=== PATIENT | female | born 1985 | race Caucasian/White ===

== ENCOUNTER 2025-11-12 08:27 | Outpatient (AMB) | payer MEDICAID, SELFPAY ==
--- NOTE | 2025-11-12 08:35 | A.OFFVIS_ITS ---
Intake Visit Reasons: Toenail Fungus Intake Note: Estevan is a 40 year old female who presents today as a new patient for a evaluation of her left great toe fungus. She states that her nail is very thick, yellow and it is flaking off. Patient mentions that about more than 6 months she dropped something on her toe and it hasnt gotten better ever since. Patient has tried applying nail medication lacquer with no changes. HPI HPI Toenail Fungus: Details: Chief Complaint: The patient presents with concerns about her left big toenail, which started bleeding about a week ago. HPI: The patient is a 40 year old female presenting with concerns about her left great toenail. Onychomycosis of the left hallux: The patient's left great toenail issue began approximately 6-12 months ago, following a suspected trauma from dropping an object on it. The nail initially appeared bruised, then became yellow and thickened. She was prescribed and has been using ciclopirox 8% lacquer for the past two to three months. Initially, treatment with the lacquer showed improvement, with a visible line of healthier nail growing out. However, about one week ago, after cleaning the nail with rubbing alcohol as part of the lacquer regimen, the nail began to bleed, appeared to lift, and has not grown in a couple of weeks. Since the bleeding started, she has applied a bandage and an ointment for cuts. The patient reports a compromised immune system and multiple medical conditions, including a history of mold poisoning, copper toxicity, anaplasmosis, and small fiber neuropathy. She has a history of adverse reactions to medications, stating she can go into toxic shock, and therefore wishes to avoid oral medications. 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 - Often goes barefoot. [facility] Social History (Updated 11/12/25 @ 08:41 by Jose Bowie) Alcohol intake: never Patient Tobacco Use Status: Never used Tobacco Current occupational status: disabled Current occupation: right hand dominant Review of Systems Const All systems reviewed & are unremarkable except as noted in HPI and below Physical Exam Extrem Other: *Bilateral Lower Extremity Focused Exam Vascular: DP/PT 2/4, CFT<3s to all digits, TG warm to cool, no pedal edema Derm: left hallux nail dystrophic, yellow-discolored, partial lifting medial nail border. no subungual debris.no erythema, drainage or signs of infection. Neuro: protective sensation grossly intact to bilateral lower extremities MSK: no tenderness on palpation of the left hallux nail Assessment & Plan Assessment & Plan (1) Tinea unguium: Code(s): B35.1 - Tinea unguium Category: Medical Plan: * - The clinical presentation is highly suggestive of onychomycosis, likely initiated by trauma which created an opportunity for fungal invasion. * - Definitive diagnosis via nail clipping for pathology and culture is recommended to identify the specific fungal organism and guide medication choice. * - Currently, there is insufficient nail length for an adequate sample, and ongoing use of topical antifungal lacquer could produce a false negative result. * - The patient will continue daily use of ciclopirox 8% lacquer, as it previously showed signs of efficacy. * - For the recent nail lifting and bleeding, the patient is advised to apply a bandage to physically keep the nail plate down and promote re-adherence of the skin, which may take several weeks. * - She was instructed to stop using the topical antibiotic ointment at this point as it may trap moisture. * - She should avoid trimming the nail to allow for sufficient growth for a future biopsy. * - Oral antifungals are not recommended at this time due to the patient's history of medication intolerance and the partial success of topical treatment. * - Plan is to follow up in approximately 6 weeks to reassess the nail and obtain a clipping for analysis if there has been adequate growth. Coding Level of Care Code New Pt Level 4 (32793) Diagnoses Tinea unguium B35.1 Time Spent (min) 30
--- OUTSIDE RECORDS SUMMARY | 2025-11-12 08:37 | XMS_ITS | Clinical Summary ---
Author Organization [facility] Address [address] [place] [phone] Phone Care Team Providers Care Yarn Texture Machine Operator Name Role Phone Nelly Lehman NP Unavailable Marlon Pan MD Unavailable [phone] Kayla Hong OD Unavailable Pratibha Valera MD Primary Care Provider + Pratibha Valera MD Unavailable [phone] Allergies Active Allergy Reactions Criticality Noted Date Comments Egg 06/01/2022 H Papillomavirus Vac,Qval (Pf) Other (See Comments) 02/20/2018 Near syncope Norethindrone Ac-Eth Estradiol Unknown 12/09/2016 Levothyroxine 12/17/2019 Other Unknown 12/09/2016 Egg white allergy Lntrdic-Psp-Yup Reductase Inhibitors 06/01/2022 Tomato 06/01/2022 Medications acetylcarnitine /a lipoic acid (ALPHA LIP ACID-ACETYLCARN ITINE ORAL) 1 Active ascorbic acid, vitamin C, (VITAMIN C) 1000 MG tablet Activ e lithium orotate 10 mg capsule Active magnesium 200 mg Tab 600 mg 2 (two) times a day. 9 Active cholecalciferol , vitamin D3, (VITAMIN D3) 10 mcg (400 unit) capsule Active ciclopirox (PENLAC) 8 % solutionIndicat ions:Onychomyco sis Apply topically nightly at bedtime. Apply over nail and surrounding skin. Apply daily over previous coat. After seven (7) days, may remove with alcohol and continue cycle. 6.6 mL 2 5 Active metroNIDAZOLE (METROCREAM) 0.75 % cream Apply topically 2 (two) times a day. 45 g 5 Active clobetasol (TEMOVATE) 0.05 % ointment Apply topically 2 (two) times a day. Apply to rash up to twice daily for 2 weeks 60 g 1 5 Active Active Problems Problem Noted Date Diagnosed Date Decreased exercise tolerance 03/22/2022 Assessment & Plan (03/22/2022 11:45 PM EDT): Work on slow build of stamina Consider systemic exertion intolerance syndrome Leg cramps 03/22/2022 Assessment & Plan (03/22/2022 11:44 PM EDT): BID stretching advised Good hydration Tremor 03/22/2022 Assessment & Plan (03/22/2022 11:45 PM EDT): Neg eval to date Will f/u neurology as planned Panic disorder 03/22/2022 Assessment & Plan (03/22/2022 11:43 PM EDT): Symptoms of palpitations in evening/sleep concerning for panic disorder Discussed SSRI, TCA and hydroxyzine. 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 She is four + weeks post infection and based on recent labs done in ED platelets are normal, WBCs are near normal. Friend is vaccinated but will be coming in on airplane that increases exposure and Delta variant rising in regions of the country. If she feels safer getting the vaccine then I recommend she get it two weeks prior to that person's arrival. She may experience side effects which any person may get and may have nothing to do with her recent illness. Getting the vaccine would be a personal decision on her part. Abnormal thyroid function test 12/25/2019 06/16/2020 Assessment & Plan (01/06/2020 2:58 PM EST): The patient did have abnormal thyroid function studies in the past but the TSH was elevated is not a suppressed TSH which normally should not cause anxiety or palpitations which was what she was experiencing. Decided to check for Samanta's thyroiditis but based on thyroid antibodies which were within the reference range she does not have this. Furthermore repeat thyroid function studies were within the reference range. She does tell me that this may be related to premenstrual syndrome. She is never had these problems before but she notices that when she experiences these palpitations and somewhat hyper alertness and anxiety is near the time that she is about to menstruate. This may be the reason why she is experiencing this as for the thyroid function studies I would say that TSH with reflex free T4 should be checked at least on a yearly basis especially because of a family history of thyroid disorder. At this point there is not much that I can add so I would not give her a follow-up appointment. Tendonitis, Achilles, right 11/05/2019 01/03/2022 Tendonitis, Achilles, left 11/05/2019 0 01/03/2022 Equinus deformity of both feet 11/05/2019 01/03/2022 Abdominal pain 02/20/2018 02/20/2018 Hypothyroidism 02/20/2018 06/16/2020 Assessment & Plan (12/25/2019 2:32 PM EST): This is a patient who had an elevated TSH on 1 occasion so she was in a subclinical hypothyroid state. She has family history of thyroid disorder. She does not know if she has Samanta's thyroiditis and she was actually placed on thyroid medication as a teenager. After taking levothyroxine 25 mcg for 2 months she developed palpitations and anxiety and discontinue the medications and the TSH is back in the normal reference range the problem is that she continues to have symptoms. She has seen a skoog operator who placed on a Holter monitor for 2 days she does not know the results of these yet. She did have an elevated reverse T3 levels unclear why that was she was not able at the time at least she can recall. I decided to check for Samanta's thyroiditis since she has family history of thyroid disorder. I am also going to repeat the free T4 free T3 and since she had elevated reverse T3 in the past I will check this again. Of course reverse T3 is seen elevated with euthyroid sick syndrome or when there is too much T4 on board. The problem was that she had already discontinued the thyroxine medication when the reverse T3 was checked and so is unclear to me why was elevated. I will repeat this study as I stated previously and I will asked the patient to return for follow-up. She will do the lab work today in the lab downstairs and I can see her in 2 weeks. Osteoarthritis of thoracic spine 02/20/2018 01/03/2022 Anaplasmosis 03/22/2022 Encounters Date Type Department Care Team Description 11/05/2025 Telephone [facility] [address] [place] [address] Pratibha Valera MD Referral ([facility] External System Generated Encounter [address] [place] [address] Unknown, Unknown, 08/22/2025 1:40 PM EDT Telemedicine [facility] [address] [place] [address] Angelina Cooley MD Skin lesions (Primary Dx); Flushing from Last 3 Months Immunizations Immunization Administration Dates Next Due HPV,quadrivalent 10/31/2013 Hepatitis B Adult 10/10/2013,09/12/2013 MMR 09/12/2013 Tdap 10/10/2013 Family History Medical History Relation Comments Diabetes Father Diverticulitis Father Hypertension Father Nephrolithiasis Father Lung cancer Maternal Grandmother Smoker Thyroid disease Maternal Grandmother Allergies Mother Food Thyroid disease Mother ? hypothyroidism Alzheimer's disease Paternal Grandfather Benign prostatic hyperplasia Paternal Grandfathe r Diabetes mellitus Paternal Grandmother Bipolar disorder Paternal Uncle Diabetes mellitus Paternal Uncle Schizophrenia Paternal Uncle Relation Status Comments Father Alive Maternal Grandfather Maternal Grandmother Mother Alive Paternal Grandfather Paternal Grandmother Paternal Uncle Social History Tobacco Use Types Packs/Day Years Used Date Smoking Tobacco: Never Smokeless Tobacco: Never Tobacco Cessation:Counseling Given: Not Answered Alcohol Use Standard Drinks/Week Comments Not Currently 0 (1 standard drink = 0.6 oz pur e alcohol) Rare, intermittent use. Child or Family Care Answer Date Record ed Do you have problems with on e of the following making it difficult for you to work, study, or receive health care? No 12/31/2021 Education Answer Date Recorded Are you interested in more education? Not on arsh e 01/08/2024 Are you concerned about learning? Not on file 01/08/2024 No 01/08/2024 No 01/08/2024 Food Answer Date Recorded Within the past 6 months we worried whether our food would run out before we got money to buy more. Never True 12/31/2021 Within the past 6 months the food we bought just didn't last and we didn't have enough money to get more. Never True Residential Stability Answer Date Recor ded What is your housing situation today? I have opal sing 12/31/2021 How many times have you move d in the past 12 months? Zero (I did not move) 12/31/2021 06 Are you worried that in t he next 2 months, you may not have your own housing to live in? No 12/31/2021 Paying for Meds Answer Date Recorded Do you have trouble paying for medicines? No 12/31/2021 Paying Utility Bills Answer Date Record ed Do you have trouble paying your heating or elect ricity bill? No 12/31/2021 Transportation Answer Date Recorded Has the lack of transportati on kept you from medical appointments or from getting medications? No 12/31/2021 Unemployment Answer Date Recorded Are you currently unemployed or working on a part-time or temporary basis, and looking for work? I choose not to answer 12/31/2021 Digital Access Answer Date Recorded No 04/18/2023 No 04/18/2023 Reliable internet access at home? Not on file 04/18/2023 Device with a working camera? Not on file Comments No Sex and Gender Information Value Date Recorded Sex Assigned at Female 01/24/2018 4:06 PM EST Legal Sex Female 7:20 PM EST Gender Identity Female 01/24/2018 4:06 PM EST Sexual Orientation Not on file Occupation Industry Job Start Date Job End Date self employed Not on file Not on file Not on file Last Filed Vital Signs Vital Sign Reading Time Taken Comments Blood Pressure 132/82 09/06/2022 9:06 AM EDT Pulse 94 06/07/2022 4:23 PM EDT pt re ported Temperature 36.2 C (97.1 F) 03/22/2022 4:45 PM EDT Respiratory Rate 14 07/10/2021 11:03 PM EDT Oxygen Saturation 100% 03/22/2022 4:45 PM EDT Inhaled Oxygen Concentration - - Weight 69.9 kg (154 lb) 09/06/2022 9:06 AM EDT Height 161.3 cm (5' 3.5 ) 02/14/2023 4:11 PM EDT Body Mass Index 26.85 09/06/2022 9:06 AM EDT Plan of Treatment Upcoming Encounters Date Type Department Care Team (Late st Contact Info) Description 12/17/2025 1:00 PM EST Telemedicine [facility] [address] [facility], [address] [place] [address] Karin Bonilla MD [address] [place] [address] [email or web address] 05/07/2026 4:00 PM EDT Office Visit [facility] [address], [address] [place] [address] Britney Anaya MD [address] [facility] [place] [address] [email or web address] Health Maintenance Due Date Last Done Comments LITHIUM LEVEL 1985 Adult Td,Tdap Booster 10/10/2023 10/10/2013 CREATININE LEVEL 05/25/2024 05/25/2023, , 02/24/2022, Additional history exists PAP SMEAR 09/16/2024 09/16/2019, 08/28, 11/17/2015, Additional history exists INFLUENZA VACCINE (#1) 2025 COVID-19 VACCINE (2024- season) 2025 TSH LEVEL 08/29/2025 08/29/2024, 12/28, 05/25/2023, Additional history exists DEPRESSION SCREENING 06/28/2026 06/28/2025 HEPATITIS C SCREENING Completed 10/13/2021 , 10/13/2021, 10/13/2021 HIV ONE-TIME SCREENING (18-65 YEARS) Completed 10/13/2021 SMOKING STATUS SCREENING (Once After 26 Yrs) Completed 04/18/2023 HEPATITIS A VACCINES Aged Out No long er eligible based on patient's age to complete this topic HIB VACCINES Aged Out No longer eligi ble based on patient's age to complete this topic MENINGOCOCCAL VACCINES (ACWY) Aged Out No longer eligible based on patient's age to complete this topic MENINGOCOCCAL VACCINES (B) Aged Out N o longer eligible based on patient's age to complete this topic PNEUMOCOCCAL VACCINES (0-49 years) Aged Out No longer eligible based on patient's age to complete this topic Medical Devices Not on file Procedures Procedure Name Priority Date/Time Associated Diagnosis Comments THYROID STIMULATING HORMONE (TSH) Routine 08/29/2024 3:08 PM EDT 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 Toxic effect of copper salt, undetermined intent, initial encounter Palpitations 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 Contact with mold Intestinal candidiasis Hyperlipidemia, unspecified hyperlipidemia type Infected insect bite of right wrist, sequela COMPREHENSIVE METABOLIC PANEL (CMP) Routine 05/25/2023 2:31 PM EDT 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 Toxic effect of copper salt, undetermined intent, initial encounter Palpitations 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 Contact with mold Intestinal candidiasis Hyperlipidemia, unspecified hyperlipidemia type HEPATITIS C ANTIBODY, QUALITATIVE Routine 10/13/2021 2:14 PM EST Need for hepatitis C screening test Screen for STD (sexually transmitted disease) PAP TEST Routine 09/16/2019 12:00 AM EDT from Last 3 Months or Most Recently Relevant to Health Maintenance Results * TSH (08/29/2024 3:08 PM EDT) TSH 2.26 0.27 - 4.20 uIU/mL [facility] Blood 08/29/2024 3:08 PM EDT 08/29/2024 3:22 PM EDT Ryan Mohan DO LAB BLOOD BKR ORDERABLES Final Result [address] [address] * (ABNORMAL) Comprehensive metabolic panel (05/25/2023 2:31 PM EDT) SODIUM 137 133 - 146 mmol/L [facility] POTASSIUM 4.5 3.3 - 5.1 mmol/L [facility] CHLORIDE 102 96 - 108 mmol/L [facility] CO2 23 21 - 35 mmol/L [facility] BUN 11 6 - 19 mg/dL [facility] CREATININE 0.90 0.5 - 1.5 mg/dL [facility] GLUCOSE 90 70 - 99 mg/dL [facility] ALBUMIN 4.8 3.9 - 4.8 g/dL [facility] TOTAL PROTEIN 8.1(H) 6.5 - 8.0 g/dL [facility] CALCIUM 9.9 8.4 - 10.3 mg/dL [facility] ALKALINE PHOSPHATASE 69 39 - 117 U/L [facility] TOTAL BILIRUBIN 0.5 0.0 - 1.2 mg/dL [facility] AST 17 0 - 37 U/L [facility] ALT 8 0 - 40 U/L [facility] GLOBULIN 3.3 1 - 4.8 g/dL [facility] EGFR 85 >59 mL/min/1.7 3m2 [facility] Comment:Estimated glomerular filtration rate calculated using the CKD-EPI refit equation. ANION GAP 17 10 - 20 mmol/L [facility] Blood 05/25/2023 2:31 PM EDT 05/25/2023 2:42 PM EDT Ryan Mohan DO LAB BLOOD BKR ORDERABLES Final Result [address] [address] * Hepatitis C antibody, qualitative (10/13/2021 2:14 PM EST) HCV NON-REACTIV E NON-REACTI VE [facility] Blood 10/13/2021 2:14 PM EST 10/13/2021 2:19 PM EST Nelly Lehman SALVAGE INSPECTOR LAB BLOOD BKR ORDERABLES Final Result [address] [address] * Pap Smear (09/16/2019 12:00 AM EDT) 09/16/2019 09/17/2019 3:0 0 PM EDT Narrative SEE NARRATIVE - 09/24/2019 9:48 AM EDT [address] [address] Rn Mobile: Darleen Negron MD SUGAR REFINERY SUPERVISOR Cytology Report FINAL DIAGNOSIS A. PAP SMEAR ([facility]) CE: SPECIMEN ADEQUACY: Satisfactory for evaluation; transformation zone present. Evaluation limited by thickness of cellular specimen. INTERPRETATION: NEGATIVE FOR INTRAEPITHELIAL LESION OR MALIGNANCY. Electronically Signed Out By: SHANICE Huitron(ASCP) The Pap test is a screening test primarily for squamous cancers and precursors and has associated false-negative and false-positive results. New technologies such as liquid-based preparations may decrease but will not eliminate all false-negative results. Regular sampling and follow-up of unexplained clinical signs and symptoms are recommended to minimize false negative results. PROCEDURES/ADDENDA HPV Testing (Requested) Ordered Date: 09/17/2019 A. PAP SMEAR ([facility]) CE: Human Papilloma Virus Test Negative for high-risk human papillomavirus types 16, 18, 45 and the Other high risk probe set (Includes 31, 33, 35, 39, 51, 52, 56, 58, 59, 66, 68) by [employer] Onclarity HR-HPV analysis. Clinical correlation is advised. This HPV test was performed at [facility], [address] [place] [address]. This test has been FDA approved for [facility] cervical cytology specimens. The accuracy and precision of this test for all other specimen sources has been verified in the Cytopathology Laboratory of the [facility] and has not been cleared or approved by the U.S. Food and Drug Administration. Clinical correlation is advised. CLINICAL HISTORY Date of Last Menstrual Period: 08-22-19 Other Clinical Conditions: Screening Pap SPECIMEN SOURCE A: PAP SMEAR ([facility]) CE Patient Name: ESTEVAN TADEO : 1985 (Age: 34) Sex: F Institution: [facility] Location: [facility] Date of Collection: 09/16/2019 Date of Reported: 09/19/2019 15:27 Results to: Nelly Lehman MSN, BS Nelly Lehman SALVAGE INSPECTOR CYTOLOGY ORDERABLES Edited Res ult - Final SEE NARRATIVE from Last 3 Months or Most Recently Relevant to Health Maintenance Insurance [facility] [place] [address] Care Teams Yarn Texture Machine Operator Relationship Specialty Start Date End Date Pratibha Valera MD [address] [place] [address] [email or web address] PCP - General Family Medicine 03/22/22 Nelly Lehman NP [address] [place] [id number] [email or web address] Historical LMR Provider 09/11/17 Marlon Pan MD [address] [place] [address], [address] [place] [address] [email or web address] Internal Medicine 02/20/18 Kayla Hong OD [address] [place] [address] Optometry 02/20/18 Pratibha Valera MD [address] [place] [address], [address] [place] [address] [email or web address] Insurance Assigned Provider 10/11/25 Additional Source Comments The information contained in this document represents components of the legal health record. It is not the complete legal health record.[facility]
--- OUTSIDE RECORDS SUMMARY | 2025-11-12 08:38 | XMS_ITS | Encounter Summary ---
Author Organization [facility] Address [address] [place] [address] Phone Care Team Providers Care Engine Room Operator Name Role Phone Nelly Lehman NP Unavailable [phone] Marlon Pan MD Unavailable [phone] Kayla Hong OD Unavailable [phone] Pratibha Valera MD Primary Care Provider + Pratibha Valera MD Unavailable Reason for Referral * Consultation (Within 1 month) - New Request Specialty Diagnoses / Procedures [facility] Referred To Contact Diagnoses Toenail fungus Pratibha Valera MD [address] [place] [address], [address] [place] [address] Phone: tel: fax: [email or web address] Unknown, Unknown, Referral ID Status Reason Start Date Expiration Date V isits Requested Visits Authorized [id number] New Request 11/05/2025 11/06/2026 1 1 Reason for Visit * Reason Onset Date Comments Referral 11/05/2025 [facility] Encounter Details Date Type Department Care Team (Late st Contact Info) Description 11/05/2025 Telephone [facility] [address] [facility] [place] [address] Pratibha Valera MD [address] [facility], [address] [place] [address] Referral ([facility]) Social History Tobacco Use Types Packs/Day Years Used Date Smoking Tobacco: Never Smokeless Tobacco: Never Alcohol Use Standard Drinks/Week Comments Not Currently [...] file Not on file Not on file documented as of this encounter Progress Notes * Lamar Newberry LPN - 11/06/2025 1:52 PM EST Referral has already been sign Please send to [facility]. Thanks * Adonis Dumas - 11/06/2025 1:47 PM EST Pt would like a different provider for this referral, [facility] Smart Phrases: Referral Request 1. Name of the office where the patient has been seen/requests to be seen: [facility] 2. Reason for referral/specialist appointment and the diagnosis code: Toenail fungus 2A. Have you seen this provider before for this same problem? YES/NO: No 2B. If this is a new problem, is your PCP aware of your symptoms? YES/NO: yes 3. Date of appointment(s):n/a 4. Name of specialist provider: n/a 5. NPI number to enter for referral authorization (enter n/a if not available): n/a 6. Number of visits requested for referral: n/a 7. Fax number of specialist office to send referral authorization: [phone] [employer] Sprinkler Inspector (Please do not reply to this user; this inbox is not monitored.) Thank you. * Sadia Solares - 11/05/2025 2:25 PM EST Referral package faxed * Lamar Newberry LPN - 11/05/2025 1:11 PM EST Referral pended. Thanks * Melisa Chappell - 11/05/2025 12:27 PM EST [facility] Smart Phrases: Referral Request 1. Name of the office where the patient has been seen/requests to be seen: [facility] 2. Reason for referral/specialist appointment and the diagnosis code: Toenail fungus 2A. Have you seen this provider before for this same problem? YES/NO: No 2B. If this is a new problem, is your PCP aware of your symptoms? YES/NO: yes 3. Date of appointment(s):n/a 4. Name of specialist provider: n/a 5. NPI number to enter for referral authorization (enter n/a if not available): n/a 6. Number of visits requested for referral: n/a 7. Fax number of specialist office to send referral authorization: [phone] [employer] Sprinkler Inspector (Please do not reply to this user; this inbox is not monitored.) Thank you. documented in this encounter Plan of Treatment Upcoming Encounters Date Type Department Care Team (Late st Contact Info) Description 12/17/2025 1:00 PM EST Telemedicine [facility] Cardiology [facility] [address] [facility], [address] [place] [address] Karin Bonilla MD [address] [facility], [address] [place] [address] [email or web address] 05/07/2026 4:00 PM EDT Office Visit [facility] [address] [facility] [address], [address] [place] [address] Britney Anaya MD [address] [place] [address] [id number] [place] [address] [email or web address] Scheduled Referrals Name Type Priority Associated Diagnoses Orde r Schedule External Referral to Podiatry Outpatient Referral Routine Toenail fungus Ordered: 11/05/2025 documented as of this encounter Visit Diagnoses Diagnosis Toenail fungus- Primary documented in this encounter Additional Health Concerns Assessment Noted Time PHQ-2 Depression Total Score: 0 06/28/20 25 4:51 PM EDT documented as of this encounter Care Teams Engine Room Operator Relationship Specialty Start Date End Date Pratibha Valera MD [address] [place] [address] [email or web address] PCP - General Family Medicine 03/22/22 Nelly Lehman NP [address] [phone] [email or web address] Historical LMR Provider 09/11/17 Marlon Pan MD [address] [facility], [address] [place] [address] [email or web address] Internal Medicine 02/20/18 Kayla Hong OD [address] [place] [phone] Optometry 02/20/18 Pratibha Valera MD [address] [place] [address], [address] [place] [address] [email or web address] Insurance Assigned Provider 10/11/25 documented as of this encounter Additional Source Comments The information contained in this document represents components of the legal health record. It is not the complete legal health record.[facility]
--- OUTSIDE RECORDS SUMMARY | 2025-11-12 08:38 | XMS_ITS | Encounter Summary ---
Author Organization [facility] Address [address] [place] [address] Phone Care Team Providers Care Meteorological Observer Name Role Phone Kern, Nelly Martinez NURSE COLLEGE Unavailable [phone] Danielle Ray HEALTHCARE MARKET CONSULTANT Unavailable Marlon Pan MD Unavailable [phone] Kayla Hong OD Unavailable Amos Higgins DO Unavailable Kaylene Dietrich CNP Primary Care Provide r Dayami Matthew MD Primary Care Provider [phone] Pratibha Valera MD Primary Care Provider + Pratibha Valera MD Unavailable [phone] Pratibha Valera MD Unavailable [phone] Encounter Details Date Type Department Care Team (Late st Contact Info) Description 06/03/2021 Procedure Pass [facility], Ct Scan - [facility] [address] [place] [address] Social History Tobacco Use Types Packs/Day Years Used Date Smoking Tobacco: Never Smokeless Tobacco: Never Alcohol Use Standard Drinks/Week Comments Yes 0 (1 standard drink = 0.6 oz pur e alcohol) Rare, intermittent use. 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 Wish to be (Past 1 Month) No 06/03/2021 2:24 PM EDT Katy Jackson RN 2. Non-Specific Active Suici justyna Thoughts (Past 1 Month) No 06/03/2021 2:24 PM EDT Samira Jackson RN 6. Suicidal Behavior (Lifetime) No 2:24 PM EDT Katy Jackson RN documented as of this encounter Plan of Treatment Upcoming Encounters Date Type Department Care Team (Late st Contact Info) Description 12/17/2025 1:00 PM EST Telemedicine [facility] [address] [facility], [address] [place] [address] Karin Bonilla MD [address] [facility], [address] [place] [address] [email or web address] 05/07/2026 4:00 PM EDT Office Visit [facility] [address], [address] [place] [address] Britney Anaya MD [address] [facility] [address] [place] [address] [email or web address] documented as of this encounter Visit Diagnoses Not on filedocumented in this encounter Care Teams Meteorological Observer Relationship Specialty Start Date End Date Kaylene Dietrich CNP [address] [place] [address] [email or web address] PCP - General Family Medicine 04/08/21 01/02/22 Dayami Matthew MD [address] [place] [address] [email or web address] PCP - General Family Medicine 01/03/22 03/21/22 Pratibha Valera MD [address] [place] [phone] [email or web address] PCP - General Family Medicine 03/22/22 Nelly Lehman NP [address] [place] [address] [email or web address] Historical LMR Provider 09/11/17 Danielle Ray FNP [address] [place] [address] [email or web address] Historical LMR Provider 09/11/17 12/04/21 Marlon Pan MD [address] [place] [address], [address] [place] [address] [email or web address] Internal Medicine 02/20/18 Kayla Hong OD [address] [place] [address] Optometry 02/20/18 Amos Higgins DO [address] [place] [address] [email or web address] Insurance Assigned Provider 06/01/20 03/05/22 Pratibha Valera MD [address] [place] [address] [address] [place] [address] [email or web address] Insurance Assigned Provider 02/04/23 08/05/23 Praitbha Valera MD [address] [place] [address], [address] [place] [address] [email or web address] Insurance Assigned Provider 10/11/25 documented as of this encounter Additional Source Comments The information contained in this document represents components of the legal health record. It is not the complete legal health record.[facility]
--- OUTSIDE RECORDS SUMMARY | 2025-11-12 08:38 | XMS_ITS | Data Portability ---
Author Organization [facility] UROLOGY Address [address] [place] [place] [address] Care Team Providers Care Bundler Name Role Phone POLLY FALL Primary Care Provider Assessment No assessment recorded. Plan of Treatment Reminders Order Date Submit Date Provider Last Modified By Organization Details Last Modified Time Details Appointments None recorded. Lab vitamin B12, serum 024 024 [facility], [address] [place] [address], [address], 5 14:17:32 vitamin D, 25-hydrox y, total, serum 024 024 [facility], [address] [place] [address], [address], 5 14:17:33 vitamin B1 (thiamine ), blood 024 024 [facility], [address] [place] [address], [address], 5 14:17:33 ferritin, serum or plasma 024 024 [facility], [address] [place] [address], [address], 4 09:32:05 vitamin B12, serum [address] [facility], [address] [place] [address], [address], 5 14:17:32 vitamin D, 25-hydrox y, total, serum [address] [facility], [address] [place] [address], [address], 14:17:32 vitamin B1 (thiamine ), blood [address] [facility], [address] [place] [address], [address], 14:17:32 ferritin, serum or plasma [address] [facility], [address] [place] [address], [address], 14:17:32 Referral None recorded. Procedures None recorded. Surgeries None recorded. Imaging None recorded. Medication Orders None recorded. Patient TargetsNo targets recorded. Patient Instructions Encounter Date Encounter Id Patient Instructions Last Modified By Organization Details Last Modified Time 05/07/2024 [id number] vitamin C ahohler Not available 05/07 14:17:03 Reason for Referral None Reported. Results Created Date Observation Date Name Description Value Unit Range Abnormal Flag Note LastModifiedBy Organization Detail LastModifiedTime Result Notes None recorded. Problems Name Problem SNOMED Code Status Onset Date Resolution Date Notes Provider Name and Address Organization Details Recorded Time Small fiber neuropathy 133524939 Active 2021 JASON BAZAN MD [address] [place] [address], [phone], [facility] 2 11:30:03 Essential hypertension 69073778 Active 2021 JASON BAZAN MD [address] [place] [address], [phone], [facility] 2 11:03:46 Sleep disorder 88016257 Active 2024 JASON BAZAN MD [address] [place] [address], [address], [facility] 5 20:48:06 Problem Notes None recorded. Medical Equipment None Reported. Medications Name Sig Start Date Stop Date Status Note LastModified by Organization Details LastModified Time doxycycline hyclate 100 mg capsule 2021 completed Not Available Not Available Not Available Halley Thyroid 15 mg tablet 2021 completed Not Available Not Available Not Available rifampin 300 mg capsule TID 2021 completed Not Available Not Available Not Available doxycycline monohydrate 100 mg capsule BID 2021 completed Not Available Not Available Not Available Vitals None Recorded Social History None recorded. Functional Status None recorded. Mental Status None recorded. Family History Nothing Reported. Medical History No medical history recorded. Gynecological HistoryNo gynecological history recorded. Obstetrics History GPAL:G 0 P 0 0 0 0 Past Encounters Encounter ID Performer Location Encounter Start Date Encounter Closed Date Diagnosis/Indication Diagnosis SNOMED-CT Code Diagnosis ICD10 Code Diagnosis IMO Codes Diagnosis Note [id number] JASON BAZAN MD [facility] [address] [facility] [address] [place] [address] 12/23/2021 10:32:37 12/23/2021 15:11:04 Ferritin level below reference range 232076098 R77.8 Will evaluate for vitamin deficiency . Small fibe r neuropathy 069260072 G62.89 This is a 36 yo with a history of severe RLS throughout the body which started three years ago. Saw a sleep specialist who found low ferritin. Discussed gabapentin - she is not interested in trying this at the timeOffere d skin biopsy to help to define the small fiber neuropathy Labs sent for peripheral neuropathy Send info to functional med doctor: Dr. Polly Terrazas [facility](no fax phone is- ) This visit was conducted using two-way, real-time telehealth video conference . The patient was in her home. Physician, Dr. Bazan was located at [facility]. Instructio ns were reviewed with the patient and verbal consent was obtained. I informed the patient that she can see me in person if needed. She is of moderate risk. Greater than 50% of this 45 min encounter was spent discussing small fiber neuropathy and coordinati ng care. Lyme disease 05822900 A6 9.20 Will evaluate for infection. Carina-Ba rr virus disease 009261211 B27.00 Will evaluate for infection. Vitamin D deficiency 347 87393 E55.9 Will evaluate for vitamin deficiency . Heavy metal screen 92093 001 Z13.88 Will evaluate for toxicity. 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 Neuropathy 483492158 G62 .9 Patient with neuropathy - will evaluate with EMG for large versus small fiber components . Vitamin B1 2 deficiency (non anemic) 80049323 E53.8 Will evaluate for vitamin deficiency . [id number] JASON BAZAN MD [facility] [address] [facility] [address] [place] [address] 05/05/2022 10:41:20 05/06/2022 14:36:16 Small fiber neuropathy 237068325 G62.89 This is a 37 yo with a history of severe RLS throughout the body which started three years ago. Saw a sleep specialist who found low ferritin. Discussed gabapentin - she is not interested in trying this at the timeOffere d skin biopsy to help to define the small fiber neuropathy Labs sent for peripheral neuropathy Labs: B12/Vit D/Ferritin and Heavy Metals were all normal Send info to functional med doctor: Dr. Polly Terrazas [facility](no fax phone is- [phone]) PCP for cardiology evaluation Consider propranolo l This visit was conducted using two-way, real-time telehealth video conference . The patient was in her home. Physician, Dr. Bazan was located at [facility]. Instructio ns were reviewed with the patient and verbal consent was obtained. I informed the patient that she can see me in person if needed. She is of moderate risk. Greater than 50% of this 45 min encounter was spent discussing small fiber neuropathy and coordinati ng care. Essential hypertension 59404566 I10 Talk with PCP and see if she might try propranolo l. [id number] JASON BAZAN MD [facility] [address] [place] [address] 03/15/2023 10:36:16 03/15/2023 11:51:01 Small fiber neuropathy 283509712 G62.89 This is a 38 yo with a history of severe RLS throughout the body which started three years ago. Saw a sleep specialist who found low ferritin. She has had some improvemen t in her functionin g since mold and copper are improved. Previously Discussed gabapentin - she is not interested in trying this at the timeOffere d skin biopsy to help to define the small fiber neuropathy Labs sent for peripheral neuropathy Labs: B12/Vit D/Ferritin and Heavy Metals were all normal on prior eval Send info to functional med doctor: Dr. Polly Ramirez om(no fax phone is- [phone]) PlanTarget vital metricsHR< 100 at restBP <150/95Dro p cellcore to bedtime until homeopathy startsStop cell core therafter with gardasilTr ack BP in am one hour after vitamins sitting and standing This visit was conducted using two-way, real-time telehealth video conference . The patient was in her home. Physician, Dr. Bazan was located at [facility]. Instructio ns were reviewed with the patient and verbal consent was obtained. I informed the patient that she can see me in person if needed. She is of moderate risk. Greater than 50% of this 45 min encounter was spent discussing small fiber neuropathy and coordinati ng care. Essential hypertension 93294729 I10 Talk with PCP and see if she might try propranolo l. [id number] JASON BAZAN MD [facility]UR[facility] OFF[facility] [address] [place] [address] 08/30/2023 14:46:31 08/30/2023 16:53:31 Small fiber neuropathy 511010781 G62.89 Patient is a 38yo with history of RLS, essential hypertensi on, and potential hypothyroi dism. RLS appears stable as patient affirms effectiven ess of ferritin and magnesium supplement s in her symptoms. Patient has some improvemen ts in her hypertensi on with supplement ation of hawthorn syrup. However, the patient's small fiber neuropathy and low thyroid hormone levels have continued to serve as unimproved issues for the patient. Send info to functional med doctor: Dr. Polly Ramirez om(no fax phone is- ) Plan- Consider use of Ashwagandh a supplement s for thryoid issues.- Follow up in 6 months via telehealth .- Check vitamin B12, vitamin D, and ferritin levels. This visit was conducted using two-way, real-time telehealth video conference . The patient was in her home. Physician, Dr. Bazan was located at [facility]. Instructio ns were reviewed with the patient and verbal consent was obtained. I informed the patient that she can see me in person if needed. She is of moderate risk. Greater than 50% of this 35 min encounter was spent discussing SFN and coordinati ng care. Vitamin B1 2 deficiency (non anemic) 09034789 E53.8 Will evaluate for vitamin deficiency . Ferritin l evel below reference range 079946805 R77.8 Will evaluate for vitamin deficiency . Disorder of vitamin D 38 6543921 E55.9 Will evaluate for vitamin deficiency . Thiamine deficiency 3993 40967 E51.9 Will evaluate for vitamin deficiency . [id number] JASON BAZAN MD [facility] [address] [place] [address] 05/07/2024 13:33:12 05/07/2024 16:17:49 Small fiber neuropathy 660951437 G62.89 Estevan Rayoana 39yo F w/ a PMHx of RLS, eHTN, and possible hypothyroi dism presents to clinic for her 8mo follow up for small fiber neuropathy and eHTN. Patient reports significan t improvemen t in chest palpitatio ns and heart racing with use of Olya syrup. She also notes continued increased diastolic BP measuremen ts w/ at-home measuremen ts, neuropathy sx related to temperatur e sensitivit y, new headache sx, recent weight gain and difficulty to loose weight, and orthostati c sxs when she goes from a low crouched position to a fully standing position. Physical exam via telehealth was nonconcern ing. Patient was counselled on discussing ButterBurr and Ashwagandh a supplement s for headaches with her homeopathi c physician. Will assess multiple vitamin levels and ferritin in blood work. Regarding her temperatur e intoleranc e, patient was counselled on not putting her legs/hands in cold water for longer than 10minutes at a time. As per chart review: Vitamin B1, Vit B12, Vit D, ferritin, copper, and heavy metal screen were normal during blood work in 08/2023. EMG (04/01/2022) to r/o l arge-fiber sensorimot or polyneurop athy or a left-sided L3-S1 radiculopa thy and disclosed no specific deficits. Send info to functional med doctor: Dr. Polly Fall in [facility](no fax phone is- ) PLAN- Discuss ButterBurr and Ashwagandh a supplement s for headaches with your homeopathjovanny singh physician- Patient counselled on not putting her legs/hands in cold water for longer than 10minutes at a time- Continue use of 600mg magnesium twice a day and 5mg ferritin for RSL- Continue lithium oratate, ferritin, Vit a, Vit D, brazil nuts, kelp, and Cellcore regimens- Reduce Vit C supplement ation intake- Blood work: Vit C, Vit B1, Vit D, Vit B12, and ferritin- Return in 6mo This visit was conducted using two-way, real-time telehealth video conference . The patient was in her home. Physician, Dr. Bazan was located at [facility]. Instructio ns were reviewed with the patient and verbal consent was obtained. I informed the patient that she can see me in person if needed. She is of moderate risk. Greater than 50% of this 35 min encounter was spent discussing SFN and coordinati ng care. Vitamin B1 2 deficiency (non anemic) 71215681 E53.8 Will evaluate for vitamin deficiency . Ferritin l evel below reference range 190133693 R77.8 Will evaluate for vitamin deficiency . Disorder of vitamin D 38 5393068 E55.9 Will evaluate for vitamin deficiency . Thiamine deficiency 3993 57643 E51.9 Will evaluate for vitamin deficiency . Vitamin C deficiency anemia 736257034 D53.2 Will evaluate for vitamin deficiency . [id number] JASON BAZAN MD [facility] OFF[facility] [address] [place] [address] 12/17/2024 14:49:12 12/17/2024 17:41:05 Small fiber neuropathy 124691190 G62.89 Estevan Tadeo is a 39yo F w/ a PMHx of RLS, eHTN, and possible hypothyroi dism presents to clinic for her 7 mo follow up for small fiber neuropathy . Many of her symptoms, including temperatur e sensitivit y, head mak when changing position, intermitte nt headaches, brain fog, and pins/needl es in her extremitie s, have persisted. Her most prominent complaint right now is her disrupted sleep cycle, causing her to fall asleep way later than is normal (even for her already delayed cycle pattern). We recommende d considerat ion of chamomile tea, Valerian tea, or sour landrum juice before bedtime to help induce drowsiness . She will consider sour landrum juice, and will look into Valerian tea as well. She already consumes chamomile tea. She has tried setting an alarm earlier in the day to help push her schedule, but generally feels unwell if she gets up too early. It is probable she is currently in a flare of her dysautonom ic symptoms, which accounts for worsening of her well-being in general. Continuati on of mold treatment and regulation of sleep cycle should help calm down the nervous system, though it may be a slow process. Relevant past workup: Vitamin B1, Vit B12, Vit D, ferritin, copper, and heavy metal screen were normal during blood work in 08/2023. EMG (04/01/2022) to r/o l arge-fiber sensorimot or polyneurop athy or a left-sided L3-S1 radiculopa thy and disclosed no specific deficits. Functional Medicine Doctor: Dr. Polly Fall in [facility] (no fax, phone is ) PLAN- Will consider re-trying ButterBur for headaches in the future- Consider trial of sour landrum juice, 4-6 oz about 1 hour before desired bedtime (~ midnight)- Consider trial of Valerian root tea prior to bed. Can steep for 30 sec - 1 minute given sensitivit y.- Please give update on sleep after 1-2 weeks of trying tea or landrum juice- Continue current supplement s as listed in HPI- Follow up 2-3 months via telemedici ne - will plan to re-check cognition at this time This visit was conducted using two-way, real-time telehealth video conference . The patient was in her home. Physician, Dr. Bazan was located at [facility]. Arjun lui were reviewed with the patient and verbal consent was obtained. I informed the patient that she can see me in person if needed. She is of moderate risk. Greater than 50% of this 45 min encounter was spent discussing SFN, sleep disorder, and coordinati ng care. Sleep disorder 61932325 G47.9 As above, will trial sour landrum juice and/or Valerian tea to help with dysregulat ed sleep schedule. [id number] JASON BAZAN MD [facility] OFF[facility] [address] [place] [address] 06/10/2025 15:25:58 06/11/2025 13:26:00 Small fiber neuropathy 505185224 G62.89 Estevan Tadeo is a 40yo F w/ a PMHx of RLS, eHTN, and possible hypothyroi dism who presents for telehealth f/u for insomnia and ANDREW. Her insomnia has greatly improved with the nightly sour landrum juice. Her current 4AM bedtime however is not sustainabl e. We recommend aiming for a bedtime goal between midnight to 2AM. She should continue taking the sour landrum juice for insomnia but there is room to improve in her sleep hygeine. We recommend the CALM marcell to assist with creating a restful environmen t to facilitate sleep. As for her ANDREW, these have also significan tly improved with the Butterbur and she should continue taking this daily. PE today was unchanged from last visit, suggesting stability of her disease. Continuati on of mold treatment and regulation of sleep cycle should help calm down the nervous system, though it may be a slow process. We recommend she see a rheumatolo gist or landscape account manager for full diagnostic workup of Elena Danlos. Her PCP can refer her to these specialist s. Functional Medicine Doctor: Dr. Polly Fall in [facility] on (no fax, phone is ) PLAN- Continue ButterBur for headaches- Continue sour landrum juice, 4-6 oz about 1 hour before desired bedtime (~ midnight)- Aim for midnight-2 AM bedtime- Download CALM marcell to facilitate sleep- Speak w PCP for Rheum/ Body Recall Instructor referral- Continue current supplement s as listed in HPI- Follow up 5-6 months This visit was conducted using two-way, real-time telehealth video conference . The patient was in her home. Physician, Dr. Bazan was located at [facility]. Instructio ns were reviewed with the patient and verbal consent was obtained. I informed the patient that she can see me in person if needed. She is of moderate risk. Greater than 50% of this 35 min encounter was spent discussing SFN, sleep disorder, and coordinati ng care. Sleep disorder 53353836 G47.9 As above, will trial sour landrum juice and/or Valerian tea to help with dysregulat ed sleep schedule. Health Concerns Section Related Observation LastModified by Organization Detai ls LastModified Time None Recorded Concern Status LastModified by Organization Details LastModified Time None Recorded Advance Directives Directive None Recorded Payers Insurance Date Sequence Insurance Name Policy Number Policy Kovacs Covered Member ID Kovacs Member ID Guarantor Name 06/10/[address] [facility] Siviva Levana [id number] Siviva Levana 06/10/2025 1 [place] PRIOR TO 2023 - [facility] (MEDICAID) [id number] Siviva Levana [id number] Siviva Levana 06/10/2025 1 [place] [facility] [id number] Siviva Levana [id number] Siviva Levana 06/10/[address] [facility] Siviva Levana [id number] Siviva Levana Notes Date Note Type Note Provider Name and Address Organization Details Recorded Time 03/15/2023 text/html This is a 38 yo with a history of severe RLS throughout the body which started three years ago. Saw a sleep specialist who found low ferritin. She saw a neurologist who did a small fiber evaluation and found marked deficits. She has developed new symptoms since that time. February 2020 she woke up with left big toe pain. She was unable to walk for weeks. She did not seek medical attention due to the pandemic. 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 Had mold fixed, copper levels have normalized. House has retested and is clear. She is now able to start treatment for this. She is having some diastolic BP elevation. Has only been taking cellcore for a month and takes it every 12 hours. Some cog issues are worse. She has had recent development of tremor after orgasm- it lasted weeks and was associated with heart palpitations. She saw PCP after functional med did not know what to do. She stopped the NAC. This sopped a year ago. There is NAC in the cellcore supplement. Tremor fluctuates. She is not doing infusions wit the functional med doctor. She is interested in some homeopathy for headaches. She may use 30c for headaches- boyron is the type that she uses. She may have as coculus or gensenicum have falk been good. The professional homeopath. She may engage with a gardasil detox with her. She will do 2 antifungals and another treatment. JASON BAZAN MD [address] [place] [address], [phone], [facility] 03/15/2023 21:12:30 08/30/2023 text/html Patient is a 38-year-old female with PMH of essential hypertension and small fiber neuropathy who presents 6mo f/u via telehealth conference call for her small fiber neuropathy and essential hypertension. Since her last telehealth visit in February 2023, patient endorses some improvements in her health. The patient endorses stable restless leg syndrome, which she states is now being well managed using 600mg magnesium twice a day and 5mg ferritin before the onset of her periods. She believes it is well managed and denies any current side effects with this regimen. Patient also has begun using Dr. Mcintyre's [place] Heart Syrup to manage her essential hypertension. She takes 1/2 teaspoon three times each day. She notes that it has reduced her diastolic pressure, increased her systolic pressure, and slightly raises her heart rate. She additionally complains of having to sleep while sitting up due to her heart palpitations.Patient also endorsed some complaints of nerve pain. For a couple weeks, patient had been solely taking blood pressures via her left arm, which resulting in severe arm pain that spontaneously resolved itself. Patient is now alternating BP measurements between left and right arms. She also complains of intermittent nerve pain and pressure in her legs that are provoked by stress, activity, and poor sleep. Patient newly reports a history of hypothyroidism, noting that she used to gain a lot of weight and feel very fatigue and cold as a teenager. She expresses interest in naturopathic alternative to treating her thyroid problems. JASON BAZAN MD [address] [place] [address], [phone], [facility] 08/30/2023 22:52:10 05/07/2024 text/html CC: 8mo f/u for small fiber neuropathy and eHTN Subjective:Estevan Tadeo 38yo F w/ a PMHx of RLS, eHTN, and possible hypothyroidism presents to clinic for her 8mo follow up for small fiber neuropathy and eHTN.Patient reports that her at-home BP measurements are high (119/95 most recently). Patient reports checking her BP using a wrist monitor. Notes that she used a wrist monitor instead of the BP cuff due to neuropathic pain from using the cuff frequently; however, she notes the wrist monitor was inaccurate so she switched back to the BP cuff. Patient notes that taking [place] syrup (1/2 tea spoon 1x to 3x daily) has not assisted w/ her elevated BPs, but reports that is has significantly reduced the frequency and intensity of her heart racing and chest palpitations. Also notes significant reduction in incidences of chest palpitations and racing waking her up at night. Notes that the syrup is not made from the plant extract but from pappas extract (Dr. Delgado heart syrup). Reports that she still experiences sx of leg cramping and head mak sensation if she moves from a crouching position to a full standing position. Patient reports reduced tolerance to heat recently as the season changed to spring and summer. Reports that her room must be below 67F. Reports that her feet feel very hot during these episodes and she must run her feet under cold water for <2minutes. She reports a longstanding problem of becoming ill when the seasons changes too quickly. Patient reports that the Mg 600mg 2x/daily and the Ferritin 5mg (takes as needed before her menses) prevent her painful leg cramps. Patient reports the N-Acetyl Cysteine (NAC) in the Cellcore kl gives her racing heart sensations when she takes more than her usual amount. Notes that she is tolerating the Cellcore treatment regimen well. Patient notes not using Ashwagandha supplements. Reports that she took an at-home lab kit for sonido allergy and food insensitivities, which was recommended by her functional medicine doctor. Notes currently waiting for results to come back. Patient reports worsened headache sx frequency and pain intensity. She notes always feeling t ense and stressed. Patient reports gaining >20lbs of weight in less than 1mo. Notes that this occurred during a a difficult period in her life when her friend . Reports that this weight has not gone away. Active Meds:- Olya syrup (Dr. Delgado heart syrup) - Magnesium blend 600mg twice daily- Vitamin c ~8000mg once daily- Alpha lipoic acid 200mg twice daily- Clarcona oratate 4.8mg as needed infrequently- Ferritin 5mg as needed- Vitamin B1 as needed infrequently- Vitamin a 10,000UI- Vitamin D 6,000UI once daily- 2 [place] nuts for low selenium- 12/12 teaspoon kelp for low iodine - Cellcore ct minerals once daily- Cellcore bc-atp twice daily- Cellcore biotoxin binder twice daily- Cellcore kl support once daily- Cellcore advanced tudca twice daily JASON BAZAN MD [address] [place], [address], [facility] [place] [facility] 05/07/2024 21:15:35 12/17/2024 text/html ROS as noted in the HPI Estvean is a 39yo F w/ a PMHx of RLS, eHTN, and possible hypothyroidism who presents to clinic for a 7mo follow up for small fiber neuropathy and eHTN via telemedicine. She was last seen in April 2024. At that time, [place] syrup had been helping her palpitations. She endorsed reduced tolerance to heat, worsened headache symptoms, weight gain, leg cramping. 08/2023 labs showed normal vitamin B1, B12, D, ferritin, copper, heavy metals. We recommended not putting her legs/hands in cold water for longer than 10 minutes. She was to continue magnesium 600 mg BID, 5 mg ferritin, lithium, vitamin A, vitamin D, [place] nuts, kelp, Cellcore. We ordered labs for vitamin C, B1, D, B12, ferritin.Since the last visit,- 05/23/24: Ferritin 122, B12 401, vitamin D 52 Active Meds:- [place] syrup (Dr. Delgado heart syrup) - 1/2 teaspoon twice daily- Magnesium blend 600mg twice daily- Vitamin c powder 1/2 teaspoon once- twice daily- Alpha lipoic acid 200mg once daily- Clarcona oratate 4.8mg as needed infrequently- Ferritin 5mg as needed (1-2x monthly before period)- Vitamin B1 as needed infrequently- Vitamin A 10,000 IU once daily- Vitamin D 6,000 IU once daily- 2 [place] nuts for low selenium- 12/12 teaspoon kelp for low iodineMold Regimen:- Cellcore ct minerals once daily- Cellcore bc-atp twice daily- Cellcore biotoxin binder twice daily- Cellcore kl support once daily- Cellcore advanced tudca twice daily Today she says the [place] syrup has continued to help her palpitations even when taken twice daily. She saw a university relations vice president in October, who unfortunately was unable to take her on as a patient. She continues to feel more edgy in general, like her nerves are in overdrive. 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 She recently has forgotten to pay bills, forgotten appointments, gotten confused while cooking/baking, which are activities she loves to do. She continues to get bad leg cramps when crouching down to pet her cats. If she is crouching for more than 5-10 seconds and then stands up, she gets a head mak, whooshing sound when standing up. She continues to have pins and needles in her legs and in her hands/arms when she is asleep. Occasionally she gets some pins/needles in her side when laying on her L. She is very sensitive to temperature changes. The cold causes her a lot of pain. Occasionally she will wake up and will have the sensation of being very warm from her knees down. She has to run them under cold water. She continues to get acupuncture, who gave her an exercise to help with this. When she stopped doing the exercise consistently, the sensation returned. Her headaches can come and go; sometimes she won't get them for weeks then will get them on consecutive days. She did try the Butterbur, but it caused some palpitations. She wants to give it a try again once she is more settled at home. 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 Her most recent levels were promising for the current treatment regimen to be helping. Unfortunately there was mold in the window in her room, which has just been replaced. Her sleep has gotten a lot worse most recently. She was diagnosed with delayed onset sleep phase disorder by a sleep specialist, so going to sleep between 1-3am and waking up between 11am-1pm has always been normal and worked for her. She typically gets tired after watching something, then listening to an audiobook, and will have no trouble falling asleep. The timing adjusts with the seasons. Lately, however, she has been falling asleep around 5-6am and waking up between 2-3pm. This has been going on for a few months, seemed to coincide with the window in her room being replaced, as she is now sleeping in a different room. She has tried forms of melatonin in the past, usually to help get back to sleep after waking up with RLS. JASON BZAAN MD [address] [place], [address], [facility] 12/17/2024 20:48:57 06/10/2025 text/html ROS as noted in the HPI Estevan is a 40 yo F w/ a PMHx of RLS, eHTN, and possible hypothyroidism who presents via telemedicine for ANDREW and insomnia follow up. She was last seen in November 2024 and was restarted on butterbur for ANDREW and sour landrum juice/valerian root tea for insomnia. Today, she reports significant improvement in ANDREW pain w 1 capsule of Butterbur. She still needs to lie down when a ANDREW occurs but reports they are much less painful. She also reports improvement in sleep since last visit. She tried valerian root tea on one occassion. After drinking the full cup, she did not feel sleepy but instead felt fully physically relaxed in her body and noticed improvement in her tremor. She only trialled this once as she was concerned for how it made her feel. As for the sour landrum juice, she takes 1 tbsp nightly and noticed great benefit in her insomnia. She currently is not taking the landrum juice nightly but denies insomnia at this time. Her bedtime is 4AM. She has started incorporating relaxation exercises before bedtime which have also helped. Notably, she was diagnosed with delayed onset sleep phase disorder by a sleep specialist, so going to sleep between 1-3am and waking up between 11am-1pm has always been normal and worked for her. She typically gets tired after watching something, then listening to an audiobook, and will have no trouble falling asleep. The timing adjusts with the seasons. She has tried forms of melatonin in the past, usually to help get back to sleep after waking up with RLS. She continues w [place] syrup for her palpitations and notes continued benefit. She is scheduled to see a university relations vice president at the end of November 2025. She continues to report LH when crouching down, HR abnormalities, but no longer endorses pins and needles in her feet. She also reports worsening skin issues for which she is searching for a reel assembler. She would like to discuss the possibility of an Elena Danlos diagnosis today, after her home extension agent recommended discussing this with a doctor. 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 Her most recent levels were promising for the current treatment regimen to be helping. Unfortunately there was mold in the window in her room, which has just been replaced. Last visit w functional doctor was told there was improvement in her labs. She is very sensitive to temperature changes. The cold causes her a lot of pain. Occasionally she will wake up and will have the sensation of being very warm from her knees down. She has to run them under cold water. She continues to get acupuncture, who gave her an exercise to help with this. When she stopped doing the exercise consistently, the sensation returned. Active Meds:- [place] syrup (Dr. Mcintyre's heart syrup) - 1/2 teaspoon twice daily- Magnesium blend 600mg twice daily- Vitamin c powder 1/2 teaspoon once- twice daily- Alpha lipoic acid 200mg once daily- Clarcona oratate 4.8mg as needed infrequently- Ferritin 5mg as needed (1-2x monthly before period)- Vitamin B1 as needed infrequently- Vitamin A 10,000 IU once daily- Vitamin D 6,000 IU once daily- 2 [place] nuts for low selenium- 12/12 teaspoon kelp for low iodineMold Regimen:- Cellcore ct minerals once daily- Cellcore bc-atp twice daily- Cellcore biotoxin binder twice daily- Cellcore kl support once daily- Cellcore advanced tudca twice daily JASON BAZAN MD [address] [facility], [place], [address], [facility] 06/12/2025 20:00:39 OBGyn Episode No OBEpisode recorded.
--- OUTSIDE RECORDS SUMMARY | 2025-11-12 08:38 | XMS_ITS | Encounter Summary ---
Author Organization [facility] Address [facility] [address] [place] [address] Phone Care Team Providers Care Laundry Attendant Name Role Phone FreestoneNelly HUMAN FACTORS SPECIALIST Unavailable Danielle Ray FARM MANAGEMENT ADVISER Unavailable Marlon Pan MD Unavailable Kayla Hong OD Unavailable Amos Higgins DO Unavailable Kaylene Dietrich CNP Primary Care Provide r Dayami Matthew MD Primary Care Provider [phone] Pratibha Valera MD Primary Care Provider + Pratibha Valera MD Unavailable Pratibha Valera MD Unavailable Encounter Details Date Type Department Care Team (Latest Contact Info) Description 11/29/2021 Transcribe Orders [facility] Praful Leavitt [address] [place] [address] [place] [address] Ryan Mohan DO [address] [place], [place] [id number] 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); Hypothyroidism, unspecified type; Loss of hair Social History Tobacco Use Types Packs/Day Years [...] on file documented as of this encounter Plan of Treatment Upcoming Encounters Date Type Department Care Team (Late st Contact Info) Description 12/17/2025 1:00 PM EST Telemedicine [facility] [address] [facility], [address] [place] [address] Karin Bonilla MD [address] [place] [address], [address] [place] [address] [email or web address] 05/07/2026 4:00 PM EDT Office Visit [facility] [address], [address] [place] [address] Britney Anaya MD [address] [place] [address] [email or web address] documented as of this encounter Results * CBC and differential (11/29/2021 2:35 PM EST) WBC 8.53 4.00 - 11.00 K/uL [facility] RBC 4.85 3.72 - 5.30 M/uL [facility] HGB 14.0 10.6 - 15.5 g/dL [facility] HCT 41.6 32.0 - 45.0 % [facility] PLT 341 140 - 430 K/uL [facility] MCV 85.8 78.0 - 97.0 fL [facility] MCH 28.9 25.0 - 33.0 pg [facility] MCHC 33.7 32.0 - 36.0 g/dL [facility] RDW 12.9 11.0 - 16.0 % [facility] MPV 9.8 8.4 - 12.8 [facility] NRBC 0.00 0 /100 WBCs [facility] ABSOLUTE NRBC 0.00 0 K/uL [facility] DIFF METHOD Auto [facility] NEUTS 64.4 43.0 - 75.0 % [facility] LYMPHS 25.9 18.2 - 47.4 % [facility] MONOS 6.6 4.00 - 11.00 % [facility] EOS 2.1 0.0 - 8.0 % [facility] BASOS 0.6 0.0 - 2.0 % [facility] Granulocytes, immature (%) 0.4 0.0 - 0.9 % [facility] ABSOLUTE NEUTS 5.50 1.80 - 7.70 K/uL [facility] ABSOLUTE LYMPHS 2.21 1.00 - 3.10 K/uL [facility] ABSOLUTE MONOS 0.56 0.20 - 0.80 K/uL [facility] ABSOLUTE EOS 0.18 0.00 - 0.80 K/uL [facility] ABSOLUTE BASOS 0.05 0.00 - 0.09 K/uL [facility] Granulocytes, immature 0.03 0.00 - 0.05 K/uL [facility] Blood 11/29/2021 2:35 PM EST 11/29/2021 2:39 PM EST [facility] DO LAB BLOOD BKR ORDERABLES Final Result [facility] [address] [place] [address] * Comprehensive metabolic panel (11/29/2021 2:35 PM EST) SODIUM 138 133 - 146 mmol/L [facility] POTASSIUM 4.6 3.3 - 5.1 mmol/L [facility] CHLORIDE 105 96 - 108 mmol/L [facility] CO2 23 21 - 35 mmol/L [facility] BUN 6 6 - 19 mg/dL [facility] CREATININE 0.70 0.5 - 1.5 mg/dL [facility] GLUCOSE 89 70 - 99 mg/dL [facility] ALBUMIN 4.5 3.9 - 4.8 g/dL [facility] TOTAL PROTEIN 7.3 6.5 - 8.0 g/dL [facility] CALCIUM 9.4 8.4 - 10.3 mg/dL [facility] ALKALINE PHOSPHATASE 68 39 - 117 U/L [facility] TOTAL BILIRUBIN 0.4 0.0 - 1.2 mg/dL [facility] AST 20 0 - 37 U/L [facility] ALT 9 0 - 40 U/L [facility] GLOBULIN 2.8 1 - 4.8 g/dL [facility] EGFR 116 >59 mL/min/1.7 3m2 [facility] Comment:Estimated glomerular filtration rate calculated using the CKD-EPI refit equation. 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- Primary Hypothyroidism, unspecified type Loss of hair Unspecified alopecia documented in this encounter Care Teams Laundry Attendant Relationship Specialty Start Date End Date Kaylene Dietrich CNP [address] [facility] [place] [address] PCP - General Family Medicine 04/08/21 01/02/22 Dayami Matthew MD [address] [place] [address], [address] [place] [address] PCP - General Family Medicine 01/03/22 03/21/22 Pratibha Valera MD [address] [place] [address] 7 [place] [address] [email or web address] PCP - General Family Medicine 03/22/22 Nelly Lehman HUMAN FACTORS SPECIALIST [address] [place] [address] [email or web address] Historical LMR Provider 09/11/17 Danielle Ray FNP [address] [place] [phone] [email or web address] Historical LMR Provider 09/11/17 12/04/21 Marlon Pan MD [address] [place] [address], [address] [place] [address] [email or web address] Internal Medicine 02/20/18 Kayla Hong OD [address] [place] [address] Optometry 02/20/18 Amos Higgins DO [address] [place] [address] [email or web address] Insurance Assigned Provider 06/01/20 03/05/22 Pratibha Valera MD [address] [place] [address] [email or web address] Insurance Assigned Provider 02/04/23 08/05/23 Pratibha Valera MD [address] [place] [address] 7 [place] [address] [email or web address] Insurance Assigned Provider 10/11/25 documented as of this encounter Additional Source Comments The information contained in this document represents components of the legal health record. It is not the complete legal health record.[facility]
--- OUTSIDE RECORDS SUMMARY | 2025-11-12 08:38 | XMS_ITS | Encounter Summary ---
Author Organization [facility] Address [facility] [employer] [facility] [address] [place] [address] Phone Care Team Providers Care Military Equipment Specialist Name Role Phone Fallon Nelly Martinez SPEECH THERAPIST EARLY INTERVENTION Unavailable [phone] Danielle Ray OPENER Unavailable [phone] Darryl Rivas [facility] Primary Care Provider [phone] Marlon Pan MD Unavailable [phone] Kayla Hong OD Unavailable Karl Lozoya MD Primary Care Provider [phone] Darryl Rivas [facility] Primary Care Provider Astrid Dueñas DO Primary Care Provider [phone] Kaylene Dietrich [facility] Primary Care Provide r Amos Higgins DO Unavailable Kaylene Dietrich [facility] Primary Care Provide r Dayami Matthew MD Primary Care Provider [phone] Pratibha Valera MD Primary Care Provider + Pratibha Valera MD Unavailable Pratibha Valera MD Unavailable Encounter Details Date Type Department Care Team (Late Contact Info) Description 08/24/2018 Procedure Pass [facility] [address] [place] [address] Social History Tobacco Use Types Packs/Day Years [...] 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 Not on fi le Not on file documented as of this encounter Plan of Treatment Upcoming Encounters Date Type Department Care Team (Late Contact Info) Description 12/17/2025 1:00 PM EST Telemedicine [facility] [address] [facility], [address] [place] [address] Karin Bonilla MD [address] [facility], [address] [place] [address] [email or web address] 05/07/2026 4:00 PM EDT Office Visit [facility] [address], [address] [place] [address] Britney Anaya MD [address] [place] [address] S[address] [place] [address] documented as of this encounter Visit Diagnoses Not on filedocumented in this encounter Care Teams Military Equipment Specialist Relationship Specialty Start Date End Date Darryl Rivas CNP [address] [place] [address], [address] [place] [address] PCP - General Family Medicine 02/20/18 09/03/18 Karl Lozoya MD [address] [place] [address], [address] [place] [address] [email or web address] PCP - General Family Medicine 09/04/18 09/11/18 Darryl Rivas CNP [address] [place] [address], [address] [place] [address] [email or web address] PCP - General Family Medicine 09/12/18 12/31/18 Astrid Dueñas DO [address] [place] [address] [email or web address] PCP - General Family Medicine 01/01/19 12/11/19 Kaylene Dietrich, FORD [address] [place] [address] [email or web address] PCP - General Family Medicine 12/12/19 04/07/21 Kaylene Dietrich CNP [address] [place] [phone] [email or web address] PCP - General Family Medicine 04/08/21 01/02/22 Dayami Matthew MD [address] [place] [address], [address] [place] [address] [email or web address] PCP - General Family Medicine 01/03/22 03/21/22 Pratibha Valera MD [address] [place] [address], [address] [place], [place] [phone] PCP - General Family Medicine 03/22/22 Nelly Lehman NP [address] [place] [address] [email or web address] Historical LMR Provider 09/11/17 Danielle Ray FNP [address] [place] [address] 7 [place] [address] [email or web address] Historical LMR Provider 09/11/17 12/04/21 Marlon Pan MD [address] [place] [address] [address] [place] [address] [email or web address] Internal Medicine 02/20/18 Kayla Hong OD [address] [place] [address] Optometry 02/20/18 Amos Higgins DO [address] [place] [address] [email or web address] Insurance Assigned Provider 06/01/20 03/05/22 Pratibha Valera MD [address] [place] [address] 7 [place] [address] Insurance Assigned Provider 02/04/23 08/05/23 Pratibha Valera MD [address] [place] [phone] Insurance Assigned Provider 10/11/25 documented as of this encounter Additional Source Comments The information contained in this document represents components of the legal health record. It is not the complete legal health record.[facility]
--- OUTSIDE RECORDS SUMMARY | 2025-11-12 08:38 | XMS_ITS | Encounter Summary ---
Author Organization [facility] Address [address] [place] [address] Phone Care Team Providers Care Railroad Firer/Fireman Name Role Phone Nelly Lehman NP Unavailable [phone] Marlon Pan MD Unavailable [phone] Kayla Hong OD Unavailable Pratibha Valera MD Primary Care Provider + Pratibha Valera MD Unavailable Reason for Visit * Reason Onset Date Comments Triage 06/06/2025 Skin Issues Encounter Details Date Type Department Care Team (Late st Contact Info) Description 06/06/2025 Nurse Triage [facility] Clinic [address] [place], [place] [phone] Pratibha Valera MD [address] [facility] [address] [place], [place] [phone] [email or web address] Triage (Skin Issues ) Social History Tobacco Use Types Packs/Day Years [...] your housing situation today? I have opal ferrari 12/31/2021 How many times have you move [...] as of this encounter Progress Notes * Melisa Chappell - 06/16/2025 3:27 PM EDT Pt called in regarding this call for skin concerns from 06/06. Pt stated it is best to communicate with her via patient gateway. Pt wanted to schedule VV to have her skin concerns evaluated. Please contact and advise. Central Support Consumer Marketing Analyst (Please do not reply to this user; this inbox is not monitored.) Thank you. * Lamar Newberry LPN - 06/10/2025 3:27 PM EDT Left message- return call pending. * Adonis Dumas - 06/10/2025 2:19 PM EDT Pt called back, is not available after 1515 today. Central Support Consumer Marketing Analyst (Please do not reply to this user; this inbox is not monitored.) Thank you. * Aleah Perdomo RN - 06/09/2025 11:40 AM EDT LVM to have patient call office. * Clarisa Peterson - 06/06/2025 4:00 PM EDT [facility] PEN Top Smart Phrases: Red Yellow Green Guidelines Select Red, Yellow, Green Triage Intake *Route to appropriate staff member/pool according to practice guidelines* Green Call Intake Call Back Number: (if not patient, name/relationship Green Symptom(s): Triage (Skin Issues ) When did these symptoms start? 3-4 Weeks Have you ever experienced these symptoms before? NO Reason patient was not scheduled? Pt asking for virtual visit or all clinical staff to have N95 Mask on. - pt asked is you use PG to communicate Additional Information: Pt said she is getting bubbling ozzing bumps on legs itching Schedule appointment or offer Care Alternative Options provided in RYOG Tool Follow practice guidelines for routing directions Reason for Call = TRIAGE Comment = GREEN + symptom or NURSING ADVICE REQUEST if requesting to speak with nursing documented in this encounter Plan of Treatment Upcoming Encounters Date Type Department Care Team (Late st Contact Info) Description 12/17/2025 1:00 PM EST Telemedicine [facility] Cardiology Clinic [address] [facility], [address] [place] [address] Karin Bonilla MD [address] [facility], [address] [place] [address] [email or web address] 05/07/2026 4:00 PM EDT Office Visit [facility] [address] [facility] 2nd Floor, [address] [place] [address] Britney Anaya MD [address] [place], [place] [address] [address] [email or web address] documented as of this encounter Visit Diagnoses Not on filedocumented in this encounter Additional Health Concerns Assessment Noted Time PHQ-2 Depression Total Score: 0 03/21/20 22 1:08 PM EDT documented as of this encounter Care Teams Railroad Firer/Fireman Relationship Specialty Start Date End Date Pratibha Valera MD [address] [place] [address] PCP - General Family Medicine 03/22/22 Nelly Lehman NP 30 [place] [address] Historical LMR Provider 09/11/17 Marlon Pan MD [address] [facility], [address] [place] [address] [email or web address] Internal Medicine 02/20/18 Kayla Hong OD [address] [place] [address] Optometry 02/20/18 Pratibha Valera MD [address] [place] [address] 7 [place] [address] [email or web address] Insurance Assigned Provider 10/11/25 documented as of this encounter Additional Source Comments The information contained in this document represents components of the legal health record. It is not the complete legal health record.[facility]
--- OUTSIDE RECORDS SUMMARY | 2025-11-12 08:38 | XMS_ITS | Encounter Summary ---
Author Organization [facility] Address [address] [facility] ([place], [place]) [address] [place] [address] Phone Care Team Providers Care Autoclave Operator Name Role Phone Nelly Lehman NP Unavailable [phone] Marlon Pan MD Unavailable [phone] Kayla Hong OD Unavailable Amos Higgins DO Unavailable Dayami Matthew MD Primary Care Provider [phone] Pratibha Valera MD Primary Care Provider + Pratibha Valera MD Unavailable [phone] Pratibha Valera MD Unavailable Encounter Details Date Type Department Care Team (Latest Contact Info) Description 02/24/2022 Transcribe Orders Virtual Department [address] [place] [address] Brent Corado MD [address] [place] [phone] [email or web address] RUQ abdominal pain (Primary Dx) Social History Tobacco Use Types Packs/Day Years [...] Answer Date Recorded Are you interested in help w ith more adult education (for example, completing high school, GED, job training, learning the Chinese language, technical skills, or developing parenting skills)? No 12/31/2021 Food Answer Date Recorded Within the past [...] work? I choose not to answer 12/31/2021 Comments No Sex and Gender Information Value [...] Info) Description 12/17/2025 1:00 PM EST Telemedicine [facility] Cardiology [facility] [address] [facility], [address] [place] [address] Karin Bonilla MD [address], [address] [place] [address] [email or web address] 05/07/2026 4:00 PM EDT Office Visit [facility] Dermatology [facility] [address] [facility] 2nd Floor, [address] [place] [address] Britney Anaya MD [address] [facility] [address] [place] [address] [email or web address] documented as of this encounter Visit Diagnoses Diagnosis RUQ abdominal pain- Primary Abdominal pain, right upper quadrant documented in this encounter Care Teams Autoclave Operator Relationship Specialty Start Date End Date Dayami Matthew MD [address] [place] [address] 7 [place] [address] [email or web address] PCP - General Family Medicine 01/03/22 03/21/22 Pratibha Valera MD [address] [place] [address] 7 [place] [address] [email or web address] PCP - General Family Medicine 03/22/22 Nelly Lehman NP [address] [place] [address] [email or web address] Historical LMR Provider 09/11/17 Marlon Pan MD [address] [place] [address], [address] [place] [address] [email or web address] Internal Medicine 02/20/18 Kayla Hong OD [address] [place] [address] Optometry 02/20/18 Amos Higgins DO [address] [place] [address] Insurance Assigned Provider 06/01/20 03/05/22 Pratibha Valera MD [address] [place] [address] Insurance Assigned Provider 02/04/23 08/05/23 Pratibha Valera MD [address] [place] [address] Insurance Assigned Provider 10/11/25 documented as of this encounter Additional Source Comments The information contained in this document represents components of the legal health record. It is not the complete legal health record.[facility]
--- OUTSIDE RECORDS SUMMARY | 2025-11-12 08:38 | XMS_ITS | Encounter Summary ---
Author Organization [facility] Address [facility] [employer] [facility] [address] [place] [address] Phone Care Team Providers Care Heat Sealing Machine Operator Name Role Phone Fallon Nelly Martinez POWER HOUSE CONTROL ROOM OPERATOR Unavailable [phone] Danielle Ray ORDNANCE ARTIFICER HELPER Unavailable Darryl Rivas [facility] Primary Care Provider [phone] Marlon Pan MD Unavailable [phone] Kayla Hong OD Unavailable Karl Lozoya MD Primary Care Provider [phone] Darryl Rivas [facility] Primary Care Provider Astrid Dueñas DO Primary Care Provider [phone] Kaylene Dietrich [facility] Primary Care Provide r Amos Higgins DO Unavailable Kaylene Dietrich [facility] Primary Care Provide r Dayami Matthew MD Primary Care Provider [phone] Pratibha Valera MD Primary Care Provider + Pratibha Valera MD Unavailable [phone] Pratibha Valera MD Unavailable Encounter Details Date Type Department Care Team (Late Contact Info) Description 06/29/2018 Procedure Pass Monica Bailon [facility] [address] [place] [address] Social History Tobacco Use Types Packs/Day Years [...] 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 documented as of this encounter Plan of Treatment Upcoming Encounters Date Type Department Care Team (Late Contact Info) Description 12/17/2025 1:00 PM EST Telemedicine [facility] [address] [facility], [address] [place] [address] Karin Bonilla MD [address] [facility], [address] [place] [address] [email or web address] 05/07/2026 4:00 PM EDT Office Visit [facility] [address], [address] [place] [address] Britney Anaya MD [address] [place] [address] [address]200 [place] [address] documented as of this encounter Visit Diagnoses Not on filedocumented in this encounter Care Teams Heat Sealing Machine Operator Relationship Specialty Start Date End Date Darryl Rivas CNP [address] [place] [address], [address] [place] [address] PCP - General Family Medicine 02/20/18 09/03/18 Karl Lozoya MD [address] [place] [address], [address] [place] [address] [email or web address] PCP - General Family Medicine 09/04/18 09/11/18 Darryl Rivas CNP [address] [place] [address], [address] [place] [address] [email or web address] PCP - General Family Medicine 09/12/18 12/31/18 Astrid Dueñas DO [address] [place] [address] [email or web address] PCP - General Family Medicine 01/01/19 12/11/19 Kaylene Dietrich, OFRD [address] [place] [address] [email or web address] PCP - General Family Medicine 12/12/19 04/07/21 Kaylene Dietrich CNP [address] [place] [address] [email or web address] PCP - General Family Medicine 04/08/21 01/02/22 Dayami Matthew MD [address] [place] [address], [address] [place] [address] [email or web address] PCP - General Family Medicine 01/03/22 03/21/22 Pratibha Valera MD [address] [place] [address], [address] [place], [place] [phone] PCP - General Family Medicine 03/22/22 Nelly Lehman NP [address] [place] [address] [email or web address] Historical LMR Provider 09/11/17 Danielle Ray FNP [address] [place] [address] 7 [place] [address] [email or web address] Historical LMR Provider 09/11/17 12/04/21 Marlon Pan MD [address] [place] [address] [address] [place] [address] [email or web address] Internal Medicine 02/20/18 Kayla Hong OD [address] [place] [address] Optometry 02/20/18 Amos Higgins DO [address] [place] [address] [email or web address] Insurance Assigned Provider 06/01/20 03/05/22 Pratibha Valera MD [address] [place] [address] 7 [place] [address] Insurance Assigned Provider 02/04/23 08/05/23 Pratibha Valera MD [address] [place] [address] Insurance Assigned Provider 10/11/25 documented as of this encounter Additional Source Comments The information contained in this document represents components of the legal health record. It is not the complete legal health record.[facility]
--- OUTSIDE RECORDS SUMMARY | 2025-11-12 08:38 | XMS_ITS | Encounter Summary ---
Author Organization [facility] Address [facility] [employer] [facility] [address] [place] [address] Phone Care Team Providers Care Film Reproducer Name Role Phone Fallon Nelly Martinez BUCKRAM SEWER Unavailable [phone] Danielle Ray ODD PIECE CHECKER Unavailable Darryl Rivas [facility] Primary Care Provider [phone] Marlon Pan MD Unavailable [phone] Kayla Hong OD Unavailable Karl Lozoya MD Primary Care Provider [phone] Darryl Rivas [facility] Primary Care Provider Astrid Dueñas DO Primary Care Provider [phone] Kaylene Dietrich [facility] Primary Care Provide r Amos Higgins DO Unavailable Kaylene Dietrich [facility] Primary Care Provide r Dayami Matthew MD Primary Care Provider [phone] Pratibha Valera MD Primary Care Provider + Pratibha Valera MD Unavailable Pratibha Valera MD Unavailable [phone] Encounter Details Date Type Department Care Team (Late Contact Info) Description 08/24/2018 Procedure Pass Monica Bailon Cardiovascular [facility] Interventional Radiology [address] [place] [address] Social History Tobacco Use Types Packs/Day Years [...] 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 Plan of Treatment Upcoming Encounters Date Type Department Care Team (Late Contact Info) Description 12/17/2025 1:00 PM EST Telemedicine [facility] [address] [facility], [address] [place] [address] Karin Bonilla MD [address] [facility], [address] [place] [address] [email or web address] 05/07/2026 4:00 PM EDT Office Visit [facility] [address], [address] [place] [address] Britney Anaya MD [address] [place] [address] S[address]200 [place] [address] documented as of this encounter Visit Diagnoses Not on filedocumented in this encounter Care Teams Film Reproducer Relationship Specialty Start Date End Date Darryl Rivas CNP [address] [place] [address], [address] [place] [address] PCP - General Family Medicine 02/20/18 09/03/18 Karl Lozoya MD [address] [place] [address], [address] [place] [address] [email or web address] PCP - General Family Medicine 09/04/18 09/11/18 Darryl Rivas CNP [address] [place] [address], [address] [place] [address] [email or web address] PCP - General Family Medicine 09/12/18 12/31/18 Astrid Dueñas DO [address] [place] [address] [email or web address] PCP - General Family Medicine 01/01/19 12/11/19 Kaylene Dietrich, FORD [address] [place] [address] [email or web address] PCP - General Family Medicine 12/12/19 04/07/21 Kaylene Dietrich CNP [address] [place] [address] [email or web address] PCP - General Family Medicine 04/08/21 01/02/22 Dayami Matthew MD [address] [place] [address], [address] [place] [address] [email or web address] PCP - General Family Medicine 01/03/22 03/21/22 Pratibha Valera MD [address] [place] [address], [address] [place], [place] [phone] PCP - General Family Medicine 03/22/22 Nelly Lehman NP [address] [place] [address] [email or web address] Historical LMR Provider 09/11/17 Danielle Ray FNP [address] [place] [address] 7 [place] [address] [email or web address] Historical LMR Provider 09/11/17 12/04/21 Marlon Pan MD [address] [place] [address] [address] [place] [address] [email or web address] Internal Medicine 02/20/18 Kayla Hong OD [address] [place] [address] Optometry 02/20/18 Amos Higgins DO [address] [place] [address] [email or web address] Insurance Assigned Provider 06/01/20 03/05/22 Pratibha Valera MD [address] [place] [address] 7 [place] [address] Insurance Assigned Provider 02/04/23 08/05/23 Pratibha Valera MD [address] [place] [address] Insurance Assigned Provider 10/11/25 documented as of this encounter Additional Source Comments The information contained in this document represents components of the legal health record. It is not the complete legal health record.[facility]
== END 2025-11-12 09:06 | disposition home or self-care (01) ==
LOC: HO.HPODS 08:27
PROVIDERS: PCP Family Medicine; Visit Provider Student in an Organized Health Care Education/Training Program
DX: B35.1 Tinea unguium (principal)
CPT/HCPCS: 99204

== ENCOUNTER → 2025-11-12 08:27 | Outpatient (BNVA) | payer MEDICAID, SELFPAY | PROVIDERS: PCP Family Medicine; Visit Provider Student in an Organized Health Care Education/Training Program | DX: B35.1 Tinea unguium (principal) | CPT/HCPCS: 99202 ==